=== PATIENT | female | born 1965 | race African-American/Black ===

== ENCOUNTER 2019-05-01 22:39 | Emergency (ER) | payer SELFPAY ==
[~2019-05-01] VITALS: Ht 162.6 cm; Wt 82.7 kg
[~2019-05-01 22:39] MED LIST: BENA5TAB3 PO
[2019-05-01 22:40] VITALS: BP 147/84
--- NOTE | 2019-05-01 23:18 | NUR ---
TO ROOM 29
[2019-05-01] MEDS ORDERED: CEPHALEXIN 500 MG CAPSULE PO ONE (23:30)
[2019-05-01] MEDS ORDERED: SULFAMETH./TRIMETHOPRIM DS 800MG/160MG TABLET PO ONE (23:30)
[2019-05-01] MEDS ORDERED: LIDOCAINE 1%, 2ML INFIL ONE (23:30)
[2019-05-01] MEDS ORDERED: LIDOCAINE-MPF 1%, 2ML ONE (23:49)
[2019-05-01] MEDS ORDERED: LIDOCAINE-MPF 1%, 5ML ONE (23:51)
[2019-05-02] MEDS ORDERED: SULFAMETH./TRIMETHOPRIM DS 800MG/160MG TABLET ONE (00:01)
[2019-05-02] MEDS ORDERED: CEPHALEXIN 500 MG CAPSULE ONE (00:01)
[2019-05-02] MEDS ORDERED: HYDROcodone/APAP 5/325 TABLET ONE (00:29)
[2019-05-02] MEDS ORDERED: HYDROcodone/APAP 5/325 TABLET PO ONE (00:30)
== END 2019-05-02 00:42 | disposition home or self-care (01) ==
LOC: ED 23:37
DX: L03.011 Cellulitis of right finger (principal)
CPT/HCPCS: 10060; 99284; J3490

== ENCOUNTER 2020-06-20 23:03 | Emergency (ER) | payer SELFPAY ==
[~2020-06-20] VITALS: Ht 165.1 cm; Wt 86.8 kg
--- NOTE | 2020-06-20 23:20 | NUR ---
THIS TECH DID EKG
[2020-06-20] MEDS ORDERED: ACETAMINOPHEN 325 MG TABLET ONE (23:29)
[2020-06-20] MEDS ORDERED: CYCLOBENZAPRINE 10 MG TABLET ONE (23:29)
[2020-06-20] MEDS ORDERED: KETOROLAC 30 MG/1 ML ONE (23:29)
[2020-06-20] MEDS ORDERED: KETOROLAC 30 MG/1 ML IM ONE (23:30)
[2020-06-20] MEDS ORDERED: CYCLOBENZAPRINE 10 MG TABLET PO ONE (23:30)
[2020-06-20] MEDS ORDERED: ACETAMINOPHEN 325 MG TABLET PO ONE (23:30)
--- NOTE | 2020-06-20 23:34 | NUR ---
PT CAME IN CO OF CHEST PAIN THAT RADIATES TO HER BACK AND GET WORSE WHEN SHE CHANGES POSITION AND WITH ACTIVITY. PT REPORTS THAT SHE TRIED TO "STRETCH" BUT IT DID NOT HELP. PT HAS BEEN TAKEN TO [facility] AND MEDICATED PER [facility]
--- NOTE | 2020-06-20 23:44 | NUR ---
PT CONNECTED TO MONITORING EQUIPMENT
[2020-06-20 23:59] LABS: BASOPHILS # (AUTO) 0.01 x10^3/uL (0-0.1); BASOPHILS % (AUTO) 0 % (0-1); EOSINOPHILS # (AUTO) 0.33 x10^3/uL (0-0.4); EOSINOPHILS % (AUTO) 3 % (1-7); LYMPHOCYTES # (AUTO) 2.34 x10^3/uL (1-3.4); LYMPHOCYTES % (AUTO) 20 % (22-44); MD NO; MEAN CORPUSCULAR HEMOGLOBIN 29.4 pg (27.0-34.8); MEAN CORPUSCULAR HGB CONC 32.2 g/dL (32.4-35.8); MEAN CORPUSCULAR VOLUME 91.2 fL (80-100); MEAN PLATELET VOLUME 8.9 fL (7.4-10.4); MONOCYTES # (AUTO) 0.68 x10^3/uL (0.2-0.8); MONOCYTES % (AUTO) 6 % (2-9); NEUTROPHILS # (AUTO) 8.19 x10^3/uL (1.8-6.8); NEUTROPHILS % (AUTO) 71 % (42-75); PLATELET COUNT 269 x10^3/uL (130-400); RED BLOOD COUNT 3.95 x10^6/uL (3.82-5.3); RED CELL DISTRIBUTION WIDTH 14.6 % (9.6-15.2)
[2020-06-21 00:08] LABS: ALBUMIN 3.5 g/dL (3.4-5.0); ANION GAP 7 mmol/L (5-15); CALCIUM 8.5 mg/dL (8.5-10.1); CHLORIDE 113 mmol/L (98-107)
[2020-06-21 00:14] LABS: ALANINE AMINOTRANSFERASE 16 U/L (12-78); ALKALINE PHOSPHATASE 115 U/L (45-117); BILIRUBIN,TOTAL 0.3 mg/dL (0.2-1.0); CREATININE 0.89 mg/dL (0.55-1.02); TOTAL PROTEIN 7.3 g/dL (6.4-8.2); TROPONIN I < 0.015 ng/mL (0.000-0.045)
[2020-06-21 00:18] VITALS: BP 160/91
--- NOTE | 2020-06-21 00:19 | NUR ---
PT RESTING IN [facility]. WATCHING TVV. VSS
== END 2020-06-21 01:01 | disposition home or self-care (01) ==
LOC: ED 06-21 00:40
DX: R07.89 Other chest pain (principal); R25.2 Cramp and spasm; I11.9 Hypertensive heart disease without heart failure
CPT/HCPCS: 36415; 71046; 80053; 83690; 84484; 85025; 93005; 96372; 99285; J1885